=== PATIENT | male | born 1975 | race Caucasian/White ===

== ENCOUNTER 2016-07-10 00:22 | Emergency (ER) | payer SELFPAY ==
[~2016-07-10] VITALS: Ht 182.9 cm; Wt 95.3 kg
[2016-07-10 00:22] VITALS: BP 131/83
--- NOTE | 2016-07-10 01:43 | NUR ---
Called to rm, no answer.
--- NOTE | 2016-07-10 02:08 | NUR ---
Called to rm, no answer.
--- NOTE | 2016-07-10 02:18 | NUR ---
Called to rm, no answer.
== END 2016-07-10 02:27 | disposition left against medical advice (07) ==
LOC: ER 00:27
DX: Z53.21 Procedure and treatment not carried out due to patient leaving prior to being seen by health care provider (principal)
CPT/HCPCS: A4606; Z7610

== ENCOUNTER 2017-07-11 10:47 | Emergency (ER) | payer MEDICAID, OTHER ==
[~2017-07-11] VITALS: Ht 177.8 cm; Wt 86.2 kg
--- NOTE | 2017-07-11 10:54 | NUR ---
CALLED IN [facility]-NO ANSWER
--- NOTE | 2017-07-11 10:58 | NUR ---
CALLED IN [facility]-NO ANSWER
[2017-07-11 11:10] VITALS: BP 139/89
[2017-07-11] MEDS ORDERED: LIDOCAINE 2% 20 ML MDV TP ONE (12:30)
[2017-07-11] MEDS ORDERED: SULFAMETH/TRIMETH 800/160 MG 1 UDTAB TABLET PO ONE ×2 (12:30→12:33)
[2017-07-11] MEDS ORDERED: LIDOCAINE 2% 20 ML MDV ONE (12:32)
== END 2017-07-11 13:45 | disposition home or self-care (01) ==
LOC: ER 10:55
DX: L02.414 Cutaneous abscess of left upper limb (principal); F11.10 Opioid abuse, uncomplicated; Z72.0 Tobacco use; F10.10 Alcohol abuse, uncomplicated; Z86.19 Personal history of other infectious and parasitic diseases
CPT/HCPCS: 10060; 99283; 99406; A4606; A6402 ×2; A6407; J3490; Z7610

== ENCOUNTER 2020-02-06 05:28 | Emergency (ER) | payer SELFPAY ==
[~2020-02-06] VITALS: Ht 177.8 cm; Wt 93.0 kg
[2020-02-06 05:29] VITALS: BP 127/84
[2020-02-06] MEDS ORDERED: DEXAMETHASONE 4 MG TABLET ONE (06:27)
[2020-02-06] MEDS ORDERED: DEXAMETHASONE 1 MG TABLET ONE (06:27)
[2020-02-06] MEDS ORDERED: DEXAMETHASONE 1 MG TABLET PO ONE (06:30)
[2020-02-06] MEDS ORDERED: PENICILLIN V POTASSIUM 500 MG TABLET PO ONE (06:30)
== END 2020-02-06 06:43 | disposition home or self-care (01) ==
LOC: ER 05:32
DX: J02.9 Acute pharyngitis, unspecified (principal); Z86.19 Personal history of other infectious and parasitic diseases; Z59.0 Homelessness
CPT/HCPCS: 99283; J8540 ×2

== ENCOUNTER 2020-03-10 03:07 | Emergency (ER) | payer SELFPAY ==
[~2020-03-10] VITALS: Ht 177.8 cm; Wt 94.3 kg
[2020-03-10 03:27] VITALS: BP 135/80
--- NOTE | 2020-03-10 03:34 | NUR ---
called pt to be room, pt left without being seen by md.
== END 2020-03-10 03:40 | disposition left against medical advice (07) ==
LOC: ER 03:08
DX: Z53.21 Procedure and treatment not carried out due to patient leaving prior to being seen by health care provider (principal)

== ENCOUNTER 2022-05-10 15:26 | Emergency (ER) | payer MEDICAID ==
[~2022-05-10] VITALS: Ht 177.8 cm; Wt 99.8 kg
--- NOTE | 2022-05-10 15:55 | NUR ---
AT BEDSIDE FOR EVAL
--- NOTE | 2022-05-10 15:59 | NUR ---
URINE COLLECTED AND SENT TO LAB
[2022-05-10] MEDS ORDERED: IBUPROFEN 400 MG TABLET ONE (16:08)
--- NOTE | 2022-05-10 16:27 | NUR ---
US TECH AT BEDSIDE
[2022-05-10] MEDS ORDERED: IBUPROFEN 400 MG TABLET PO ONE (16:30)
[2022-05-10 16:50] LABS: BILIRUBIN,URINE 1+ (NEGATIVE); COLOR,URINE YELLOW (YELLOW); LEUKOCYTE ESTERASE ,URINE NEGATIVE (NEGATIVE); NITRITE, URINE NEGATIVE (NEGATIVE); PROTEIN,URINE TRACE mg/dl (NEGATIVE); UGLUCOSE NEGATIVE (NEGATIVE)
[2022-05-10 17:20] LABS: BACTERIA,URINE None seen /HPF (None Seen); MUCUS,URINE Few /LPF (None Seen); RBC,URINE 0-2 /HPF (0-2); SQUAMOUS EPITHELIAL CELL,UR 0-2 /HPF (None Seen); WBC,URINE 0-2 /HPF (0-3)
[2022-05-10 19:11] VITALS: BP 158/70
== END 2022-05-10 19:12 | disposition home or self-care (01) ==
LOC: ER 15:34
DX: N43.3 Hydrocele, unspecified (principal)
CPT/HCPCS: 76870-TC; 81001; 87086-TC; 87491; 87591

== ENCOUNTER 2023-02-06 05:52 | Emergency (ER) | payer SELFPAY ==
[~2023-02-06] VITALS: Ht 177.8 cm; Wt 97.5 kg
[2023-02-06 05:52] VITALS: BP 126/67; TEMP 98.8; O2SAT 97
[2023-02-06] MEDS ORDERED: KETO10TA2 PO (06:24)
[2023-02-06] MEDS ORDERED: SULF1TAB48 PO (06:24)
== END 2023-02-06 06:29 | disposition home or self-care (01) ==
LOC: ER 06:03
DX: L03.115 Cellulitis of right lower limb (principal); Z90.89 Acquired absence of other organs

== ENCOUNTER 2023-02-20 22:28 | Emergency (ER) | payer SELFPAY ==
[~2023-02-20] VITALS: Ht 177.8 cm; Wt 90.7 kg
[~2023-02-20 22:28] MED LIST: KETO10TA2 PO; SULF1TAB48 PO
[2023-02-21] VITALS: BP 149/91; TEMP 98.2; O2SAT 99
[2023-02-21] MEDS ORDERED: IV NS 0.9% 1,000 ML BAG IV ONE
[2023-02-21] MEDS ORDERED: CEFAZOLIN 2 GM in IV D5W 100 ML IV ONE ×2
[2023-02-21] MEDS ORDERED: VANCOMYCIN 1 GM in IV D5W 250 ML IV ONE ×2
[2023-02-21] MEDS ORDERED: KETOROLAC TROMETHAMINE INJ 30 MG/ML VIAL IV ONE
[2023-02-22] MEDS ORDERED: CLIN300C12 PO (09:28)
== END 2023-02-21 00:02 | disposition left against medical advice (07) ==
LOC: ER 22:31
DX: L03.113 Cellulitis of right upper limb (principal); F19.10 Other psychoactive substance abuse, uncomplicated; J45.909 Unspecified asthma, uncomplicated; F17.200 Nicotine dependence, unspecified, uncomplicated; Z90.49 Acquired absence of other specified parts of digestive tract; Z79.899 Other long term (current) drug therapy
CPT/HCPCS: 99281; J3370; 85025-TC; 87040-TC; 87086-TC; J0690; J7060

== ENCOUNTER 2023-02-21 04:49 | Inpatient (IN) | payer SELFPAY ==
[~2023-02-21] VITALS: Ht 177.8 cm; Wt 93.0 kg
[2023-02-21 07:54] LABS: BASOPHILS # (AUTO) 0.1 K/uL (0.0-0.2); EOSINOPHILS # (AUTO) 0.3 K/uL (0.0-0.7); EOSINOPHILS % (AUTO) 3.1 % (0.0-6.0); HEMATOCRIT 38 % (39-51); HEMOGLOBIN 12.2 g/dL (13.5-17.5); LYMPHOCYTES # (AUTO) 1.6 K/uL (0.8-4.8); LYMPHOCYTES % (AUTO) 17.3 % (20.0-44.0); MEAN CORPUSCULAR HEMOGLOBIN 26 PG (26.0-33.0); MEAN CORPUSCULAR HGB CONC 32 g/dl (31.0-36.0); MEAN CORPUSCULAR VOLUME 81 fL (80-96); MONOCYTES # (AUTO) 0.8 K/uL (0.1-1.30); MONOCYTES % (AUTO) 8.5 % (2.0-12.0); NEUTROPHILS # (AUTO) 6.3 K/uL (1.8-8.9); NEUTROPHILS % (AUTO) 70.1 % (43.0-81.0); PLATELET COUNT (AUTO) 384 K/uL (150-450); RED BLOOD CELL COUNT(AUTO) 4.66 MIL/uL (4.5-6.0); RED CELL DISTRIBUTION WIDTH 13.5 % (11.5-15.0)
[2023-02-21] MEDS ORDERED: VANCOMYCIN 1 GM in IV D5W 250 ML IV ONE (08:00)
[2023-02-21] MEDS ORDERED: PIPERACILLIN /TAZOBACTAM 3.375 G in IV D5W 50 ML IV ONE (08:00)
[2023-02-21] MEDS ORDERED: IV NS 0.9% 1,000 ML BAG IV ONE (08:00)
[2023-02-21 08:10] LABS: ALBUMIN 3.4 g/dL (3.4-5.0); BILIRUBIN,DIRECT 0.3 mg/dL (0.0-0.2); BILIRUBIN,TOTAL 0.8 mg/dL (0.2-1.0); CREATININE 0.9 mg/dL (0.6-1.3); POTASSIUM 3.9 mmol/L (3.5-5.1); TOTAL PROTEIN, SERUM 7.9 g/dL (6.4-8.2)
[2023-02-21 08:15] LABS: LACTIC ACID 0.9 mmol/L (0.4-2.0)
[2023-02-21] MEDS ORDERED: ACETAMINOPHEN 325 MG TABLET PO PRN (11:30)
[2023-02-21] MEDS ORDERED: Z GUARD REMEDY 4 OZ OINT TP PRN (11:30)
[2023-02-21] MEDS ORDERED: ONDANSETRON HCL/PF 4 MG/2 ML VIAL IVP PRN (11:30)
[2023-02-21] MEDS ORDERED: MAGNESIUM HYDROXIDE 30 ML UDC PO PRN (11:30)
[2023-02-21] MEDS ORDERED: MAG HYDROX/AL HYDROX/SIMETH 30 ML UDC PO PRN (11:30)
[2023-02-21 12:00] VITALS: O2SAT 98
[2023-02-21 20:00] VITALS: BP 137/76; TEMP 99.6; O2SAT 100
[2023-02-21] MEDS: VANCOMYCIN 1.25 GM in IV D5W 250 ML IV SCH (21:14)
[2023-02-22 07:30] VITALS: BP 108/66; TEMP 99.1; O2SAT 99
[2023-02-22] MEDS ORDERED: CLIN300C12 PO (09:28)
[2023-02-22] MEDS: VANCOMYCIN 1.25 GM in IV D5W 250 ML IV SCH (10:00)
== END 2023-02-22 11:30 | disposition home or self-care (01) | DRG 603 ==
LOC: ER 04:58 → MED 14:20
PROVIDERS: ADMIT Internal Medicine; ATTEND Internal Medicine
DX: L03.113 Cellulitis of right upper limb (principal); J45.909 Unspecified asthma, uncomplicated; Z90.49 Acquired absence of other specified parts of digestive tract; F19.90 Other psychoactive substance use, unspecified, uncomplicated; Z86.19 Personal history of other infectious and parasitic diseases
CPT/HCPCS: 36415; 73130-TC; 80048-TC; 80076-TC; 83605-TC; 85025-TC; 87040-TC; A4223; G0378; J2543; J3370; J7030; J7050; J7060

== ENCOUNTER 2023-03-09 02:42 | Emergency (ER) | payer MEDICAID ==
[~2023-03-09] VITALS: Ht 177.8 cm; Wt 90.7 kg
[~2023-03-09 02:42] MED LIST changes: +CLIN300C12 PO; -KETO10TA2 PO; -SULF1TAB48 PO
[2023-03-09] MEDS ORDERED: CLIN300C12 PO (03:59)
[2023-03-09 04:08] VITALS: BP 130/77; TEMP 98.4; O2SAT 95
== END 2023-03-09 04:09 | disposition home or self-care (01) ==
LOC: ER 02:52
DX: L03.113 Cellulitis of right upper limb (principal); L02.413 Cutaneous abscess of right upper limb; J45.909 Unspecified asthma, uncomplicated; Z79.899 Other long term (current) drug therapy; Z90.49 Acquired absence of other specified parts of digestive tract

== ENCOUNTER 2023-04-04 04:39 | Emergency (ER) | payer MEDICAID ==
[~2023-04-04] VITALS: Ht 177.8 cm; Wt 90.7 kg
[2023-04-04] MEDS ORDERED: ALBU6.7H9 INH (07:05)
[2023-04-04] MEDS ORDERED: CLIN300C12 PO (07:05)
[2023-04-04 07:09] VITALS: BP 144/86; TEMP 98.1; O2SAT 98
== END 2023-04-04 07:09 | disposition home or self-care (01) ==
LOC: ER 04:47
DX: L98.9 Disorder of the skin and subcutaneous tissue, unspecified (principal); R06.2 Wheezing; Z79.899 Other long term (current) drug therapy; Z90.49 Acquired absence of other specified parts of digestive tract